=== PATIENT | female | born 1970 | race Caucasian/White ===

== ENCOUNTER 2022-03-17 15:10 | Emergency (ER) | payer SELFPAY ==
[2022-03-17 15:15] VITALS: BP 119/57; PULSE 83; RESP 20; TEMP 36.9; O2SAT 98
--- NOTE | 2022-03-17 15:54 | ED.EAR ---
HPI - Ear Problem General Chief complaint: Ear Stated complaint: Ear Pain Time Seen by Provider: 03/17/22 15:50 Source: patient, RN notes reviewed and old records reviewed Mode of arrival: ambulatory Limitations: no limitations History of Present Illness HPI Narrative: 52-year-old female who presents to [facility] with complaints of left ear discomfort, pressure for the past 2 days with feeling like fluid is in her left ear with some pain radiating to jaw below her ear. Patient denies any known fever, chills or sweats or any body aches, has not taken any OTC medications for her symptoms. She reports occasional dry cough, denies any sinus congestion or drainage, denies any headache pain. MD Complaint: ear pain Location: left ear Discharge from ear: Reports no Treatment prior to arrival: none Related Data Home Medications Medication Instructions Recorded Confirmed aspirin 81 mg tablet,delayed 81 mg PO DAILY 03/11/19 release (Adult Aspirin Regimen) clopidogrel 75 mg tablet (Plavix) 75 mg PO DAILY 03/11/19 multivitamin 1 tablet PO DAILY 03/11/19 Allergies Allergy/AdvReac Type Severity Reaction Status Date / Time No Known Allergies Allergy Verified 07/26/20 10:40 Review of Systems Review of Systems: CONSTITUTIONAL: Denies fever, chills, or sweats. EYES: Denies visual changes, redness, or discharge. ENT: Denies rhinorrhea, congestion, sore throat, left otalgia. CARDIOVASCULAR: Denies chest pain, palpitations, or edema. RESPIRATORY: Reports dry cough denies dyspnea. GASTROINTESTINAL: Denies abdominal pain, nausea, vomiting, or diarrhea. GENITOURINARY: Denies dysuria or hematuria. SKIN: Denies rash or itching. MUSCULOSKELETAL: Denies back pain, joint pain, or myalgia. NEUROLOGIC: Denies headache, numbness, or weakness. PSYCHIATRIC: Denies anxiety or depression. All systems reviewed & are unremarkable except as noted in HPI and below PMFSH Past Medical History Medical History (Updated 03/18/22 @ 08:55 by Kathi Polo NP) CHF (congestive heart failure) Hypothyroidism Myocardial infarction 2010 Surgical History Surgical History (Updated 03/18/22 @ 08:48 by Kathi Polo NP) Delivery by section History of tubal ligation Hx of cholecystectomy Hx of gastric bypass gastric sleeve Hx of tonsillectomy Stented coronary artery Family History Family History Grandparent Family history of malignant neoplasm Social History Social History Smoking packs per day: 0.5 Smoking cigarettes per day: 10.0 Years smoked: 25 Smoking pack-years: 12.50 Smoking status: Current some day smoker Alcohol intake: never Comments At time of signature, agree with nursing past medical, surgical, social and family history. There is no relevant family history pertinent to the presenting complaint Exam Narrative: GENERAL: Well-appearing, well-nourished, and in no acute distress. HEAD: Normocephalic, atraumatic. EYES: PERRLA and EOMI. ENT: Nares clear, no rhinorrhea or epistaxis. Mucous membranes moist.Left TM red and bulging no swelling to tissue in front or behind ear, Right TM normal with good light reflex, throat pink with no lesions or exudates, no tonsils present. NECK: Supple. no lymphadenopathy CHEST: Clear to auscultation. No respiratory distress.dry cough noted,SAO2 98% on room air HEART: Regular rate and rhythm. No murmur heard. Normal pulses. ABDOMEN: Soft, nontender, nondistended, normal active bowel sounds. EXTREMITIES: Normal range of motion. No edema. SKIN: Warm, dry, no rash. NEURO: No focal deficits. Alert and oriented x3. Course Course Emergency Course: Patient is aware of diagnosis, understands and agrees to treatment plan.? Anticipatory guidance given.? Patient agrees to follow-up as directed and is aware of reasons to seek care at the emergency department. Portions of
== END 2022-03-17 16:12 | disposition home or self-care (01) ==
PROVIDERS: Emergency Provider Registered Nurse
DX: H66.92 Otitis media, unspecified, left ear (principal); F17.210 Nicotine dependence, cigarettes, uncomplicated; I50.9 Heart failure, unspecified; E03.9 Hypothyroidism, unspecified; I25.2 Old myocardial infarction; Z98.84 Bariatric surgery status; Z95.5 Presence of coronary angioplasty implant and graft; Z79.82 Long term (current) use of aspirin
CPT/HCPCS: 99213; G0463

== ENCOUNTER 2023-10-16 19:30 | Emergency (ER) | payer SELFPAY ==
[2023-10-16 19:36] VITALS: BP 131/70; PULSE 105; RESP 16; TEMP 36.6; O2SAT 99
--- NOTE | 2023-10-16 19:59 | ED.ABDPAIN ---
HPI - Abdominal Pain General Chief Complaint: Abdominal Pain Stated Complaint: Constipation Time Seen by Provider: 10/16/23 20:00 Source: patient and RN notes reviewed Mode of arrival: ambulatory Limitations: no limitations History of Present Illness HPI narrative: 53-year-old female presented for complaint of rectal pain today. She states after attempting to use the bathroom for several minutes without results she developed rectal pain. States she rested on her bed, and felt that she was about to have incontinent stool. Again attempted bowel movement when she felt a bubble went back in. She denies nausea, vomiting diarrhea, constipation, hematochezia, melena, hemorrhoids, fevers or chills. She went to the emergency room for this complaint it was reading for 4 hours. Related Data Home Medications Medication Instructions Recorded Confirmed amlodipine 5 mg tablet mg 10/16/23 levothyroxine 88 mcg tablet mcg 10/16/23 lisinopril 10 mg tablet mg 10/16/23 Allergies Allergy/AdvReac Type Severity Reaction Status Date / Time No Known Allergies Allergy Verified 10/16/23 20:02 Review of Systems Review of Systems: CONSTITUTIONAL: Denies body aches, fever, chills ENT: Denies rhinorrhea, congestion CARDIOVASCULAR: Denies chest pain, palpitations, or edema. RESPIRATORY: Denies cough or dyspnea. GASTROINTESTINAL: Endorses rectal pain. Denies abdominal pain, nausea, vomiting, diarrhea hematochezia, melena, hematemesis GENITOURINARY: Denies dysuria, hematuria, or CVA tenderness. SKIN: Denies rash, itching, or wounds. MUSCULOSKELETAL: Denies back pain, joint pain, or myalgia. NEUROLOGIC: Denies headache, numbness, tingling, or weakness. All systems reviewed & are unremarkable except as noted in HPI and below PMFSH Past Medical History Medical History CHF (congestive heart failure) Hypothyroidism Myocardial infarction 2010 Surgical History Surgical History Delivery by section History of tubal ligation Hx of cholecystectomy Hx of gastric bypass gastric sleeve Hx of tonsillectomy Stented coronary artery Family History Family History Grandparent Family history of malignant neoplasm Social History Social History Smoking packs per day: 0.5 Smoking cigarettes per day: 10.0 Years smoked: 25 Smoking pack-years: 12.50 Smoking status: Current some day smoker Alcohol intake: never Comments At time of signature, I have reviewed and agree with nursing past medical, surgical, social and family history unless otherwise noted. Please see nursing chart for further information. There is no relevant family history pertinent to the presenting complaint Exam Narrative: GENERAL: Well-appearing ENT: Mucous membranes pink and moist. CHEST: No respiratory distress. Clear to auscultation. HEART: Regular rate and rhythm. No murmur appreciated. Normal peripheral pulses. ABDOMEN: abd soft, nondistended, normal active bowel sounds. Nontender abdomen. DOC noted hard stool in vault, normal tone, no external hemorrhoids or bleeding. Chaperoned with student Shawn. EXTREMITIES: Normal range of motion. No edema. SKIN: Warm, dry, multiple scarred lesions to buttocks and cleft. Capillary refill normal. Normal skin turgor. NEURO: No focal deficits. Alert and oriented x3. PSYCH: Normal affect. Course Course Emergency Course: Patient is aware of diagnosis, understands and agrees to treatment plan. Anticipatory guidance given. Patient agrees to follow-up as directed and is aware of reasons to seek care at the emergency department. Portions of this record may have been created with voice recognition software Level of Care: Express Care Visit Vital Signs Vital signs: Vital Signs
== END 2023-10-16 20:23 | disposition home or self-care (01) ==
PROVIDERS: Emergency Provider Nurse Practitioner Family
DX: K62.89 Other specified diseases of anus and rectum (principal); F17.210 Nicotine dependence, cigarettes, uncomplicated; E03.9 Hypothyroidism, unspecified; I50.9 Heart failure, unspecified; I25.2 Old myocardial infarction; Z95.5 Presence of coronary angioplasty implant and graft
CPT/HCPCS: 99211; G0463